=== PATIENT | male | born 1970 | race Caucasian/White ===

== ENCOUNTER → 2016-05-16 | Outpatient (CLI) | payer MEDICAID | LOC: FIMAGING 17:45 | PROVIDERS: ATTEND Radiology Diagnostic Radiology | DX: J40 Bronchitis, not specified as acute or chronic (principal) ==

== ENCOUNTER → 2016-05-16 | Outpatient (CLI) | payer MEDICAID | LOC: FIMAGING 12:54 | PROVIDERS: ATTEND Family Medicine | DX: Z13.6 Encounter for screening for cardiovascular disorders (principal); I10 Essential (primary) hypertension ==

== ENCOUNTER 2017-09-06 14:20 | Emergency (ER) | payer MEDICAID, OTHER ==
--- NOTE | 2017-09-06 14:59 | EDPHY ---
H & P Stated Complaint: L buttock wound Time Seen by Provider: 09/06/17 14:58 HPI/ROS: HPI: This is a 46-year-old male who presents with Chief Complaint: Left buttock wound Location: Left buttock Quality: Wound Duration: 4 days Signs and Symptoms: No bleeding, no radiation, no numbness, no weakness, no tingling, no incontinence, no decreased range of motion, no swelling, + pain, no fever, + redness Timing: Worsening Severity: Moderate Context: Patient reports that he sat on a piece of glass on a park bench while he was visiting with his daughter approximately 5 days ago. He was wearing pants at the time the glass poke through. He was able to pull out the glass in its entirety. Over the last 4 days he has noticed abscess on his left buttock that is gradually increasing in size and tender to touch. He denies any difficulty defecating. Denies fever, paresthesias, numbness, discharge. Takes Xarelto. Modifying Factors: None Comment: ROS: see HPI Constitutional: No fever, no chills, no weight loss Eyes: No blurred vision Respiratory: No shortness of breath, no cough Cardiovascular: No chest pain Gastrointestinal: No nausea, no vomiting no diarrhea Genitourinary: No dysuria Extremities: No myalgias Neurologic: No weakness, no numbness Skin: No rashes Hematologic: No bruising, no bleeding MEDICAL/SURGICAL/SOCIAL HISTORY: Medical/Surgical history: DVT, bilat femoral bypass, HTN, cholesterol,chronic pain, diverticulitis, colectomy 4 yrs ago Social history: Disable. CONSTITUTIONAL: Overweight middle-aged white male, awake and alert, no obvious distress HEENT: Atraumatic and normocephalic, PERRL, EOMI. Nares patent; no rhinorrhea; no nasal mucosal edema. Tympanic membranes clear. Oropharynx clear, no exudate and moist pink mucosa. Airway patent. No lymphadenopathy. No meningismus. Cardiovascular: Normal S1/S2, regular rate, regular rhythm, without murmur rub or gallop. PULMONARY/CHEST: Symmetrical and nontender. Clear to auscultation bilaterally. Good air movement. No accessory muscle usage. ABDOMEN: Soft, nondistended, nontender, no rebound, no guarding, no peritoneal signs, no masses or organomegaly. No CVAT. RECTAL: Good sphincter tone, light brown stool in vault, no external hemorrhoids , no fissures, no palpable masses EXTREMITIES: 2/2 pulses, strength 5/5, no deformities, no clubbing, no cyanosis or edema. NEUROLOGICAL: no focal neuro deficits. GCS 15. SKIN: Warm and dry, left buttock shows 2 in annular abscess located in the medial portion of the left buttock; mild surrounding erythema. no rash. Good capillary refill. Source: Patient Exam Limitations: No limitations - Personal History Current Tetanus/Diphtheria Vaccine: No Current Tetanus Diphtheria and Acellular Pertussis (TDAP): No Tetanus Vaccine Date: < 10 YRS - Medical/Surgical History Hx Asthma: No Hx Chronic Respiratory Disease: No Hx Diabetes: No Hx Cardiac Disease: Yes Hx Renal Disease: Yes Hx Cirrhosis: No Hx Alcoholism: No Hx HIV/AIDS: No Hx Splenectomy or Spleen Trauma: No Other PMH: DVT, bilat femoral bypass, HTN, cholesterol,chronic pain. diverticulitis, colectomy 4 yrs ago - Social History Smoking Status: Current some day smoker Constitutional: Initial Vital Signs Temperature (C) 36.9 C 09/06/17 14:31 Heart Rate 100 09/06/17 14:31 Respiratory Rate 16 09/06/17 14:31 Blood Pressure 179/100 H 09/06/17 14:31 O2 Sat (%) 96 09/06/17 14:31 O2 Delivery Mode Room Air Allergies/Adverse Reactions: influenza virus vaccine, specific [Influenza Virus Vacc,Specific] Allergy ( Severe, Verified 09/06/17 14:30) Other-Enter Comments [place] And Derivatives Allergy (Intermediate, Verified 09/06/17 14:30) Other-Enter Comments Home Medications: Medication Instructions Recorded Clopidogrel Bisulfate [Plavix (*)] 75 mg PO HS 10/22/14 Gabapentin [Neurontin 300 MG (*)] 300 mg PO TID PRN 10/22/14 Metoprolol Tartrate [Lopressor 100 100 mg PO BID 10/22/14 mg (*)] Rosuvastatin Calcium [Crestor 40mg 40 mg PO HS 10/22/14 (*)] Warfarin Sodium [Coumadin 5MG (*)] 5 mg PO SUMOWEFRSA@209910/22/14 Warfarin Sodium [Coumadin 5MG (*)] 7.5 mg PO TUTH@209910/22/14 Colchicine [Colchicine (RX)] 0.6 mg PO TID #5 tab 10/25/14 Pantoprazole Sodium [Protonix] 40 mg PO BID #60 tab 10/25/14 Cephalexin [Keflex (*)] 500 mg PO TID #21 cap 09/06/17 Medical Decision Making Procedures: Procedure: Abscess drainage. The patient's abscess was located on the left buttock. I obtained verbal consent from the patient to drain the abscess who was informed about the possibility of bleeding and pain. The abscess was incised with #11 scalpel and a 6 mL amount of purulent drainage was expressed. I irrigated the wound and placed some packing. The patient tolerated the procedure well. The procedure was performed by myself. ED Course/Re-evaluation: Vital signs reviewed upon arrival and stable. Fluctuance I and D. No packing placed. Given Keflex only x7 days this patient takes warfarin and concomitant interaction with Bactrim. Patient unable to perform Sitz baths as unable to sit down in a bath due to chronic health issues. Verbal and written wound care instructions provided. This patient was seen under the supervision of my secondary supervising physician. I evaluated care for this patient independently. Discussed this patient with Dr. Ocampo who did not see the patient. Differential Diagnosis: Differential diagnosis includes but is not limited to cellulitis, foreign body, abscess, MRSA infection. Departure - Departure Disposition: Home, Routine, Self-Care Clinical Impression: Left buttock abscess Condition: Good Instructions: Abscess (ED) Additional Instructions: Take Tylenol 650 mg every 4 hours and/or Ibuprofen 600 mg every 8 hours with food as needed for pain. Take Keflex 3 times daily x7 days. Referrals: PCP Not In,Dictionary [Medical Doctor] - As per Instructions Prescriptions: Cephalexin [Keflex (*)] 500 mg PO TID #21 cap
[2017-09-06 16:07] VITALS: BP 178/122
== END 2017-09-06 16:06 | disposition home or self-care (01) ==
PROC: 0H98XZZ Drainage of Buttock Skin, External Approach (ICD-10-PCS; principal; 2017-09-06)
DX: L02.31 Cutaneous abscess of buttock (principal); I10 Essential (primary) hypertension; F17.200 Nicotine dependence, unspecified, uncomplicated

== ENCOUNTER 2018-05-30 14:59 | Inpatient (IN) | payer OTHER ==
[2018-05-30] MEDS ORDERED: ACETAMINOPHEN 325 MG TAB PO ONE (17:00)
--- NOTE | 2018-05-30 17:00 | EDPHY ---
H & P Stated Complaint: r knee swelling/paiin/ fever/ hx dvt in past Time Seen by Provider: 05/30/18 16:27 HPI/ROS: CHIEF COMPLAINT: Right knee pain HISTORY OF PRESENT ILLNESS: 47-year-old male s/p bilateral fem-pop bypass on Xarelto presents with right knee pain. Onset of moderate right knee pain 2 days ago. The pain is constant and is associated with swelling. Pain increases with movement and weight-bearing. No recent injury or illness. Does not feel ill and no fever. REVIEW OF SYSTEMS: complete 10 point ROS reviewed and is negative except for the noted elements in the HPI - Personal History Current Tetanus Diphtheria and Acellular Pertussis (TDAP): Unsure Tetanus Vaccine Date: < 10 YRS - Medical/Surgical History Hx Asthma: No Hx Chronic Respiratory Disease: No Hx Diabetes: No Hx Cardiac Disease: Yes Hx Renal Disease: Yes Hx Cirrhosis: No Hx Alcoholism: No Hx HIV/AIDS: No Hx Splenectomy or Spleen Trauma: No Other PMH: DVT, bilat femoral bypass, HTN, cholesterol,chronic pain. diverticulitis, colectomy 4 yrs ago - Social History Smoking Status: Current some day smoker - Physical Exam Exam: General Appearance: Alert, pleasant Eyes: Pupils equal and round, no conjunctival pallor ENT, Mouth: Mucous membranes moist Neck: Normal inspection Respiratory: Lungs are clear to auscultation Cardiovascular: Regular rate and rhythm Gastrointestinal: Abdomen is soft and nontender Neurological: A&O, nonfocal exam Skin: Warm and dry, no rash Extremities: Right knee-joint effusion present, no overlying erythema, warmth or tenderness Psychiatric: Mood and affect normal Constitutional: Initial Vital Signs Temperature (C) 38 C 05/30/18 15:39 Heart Rate 104 H 05/30/18 15:39 Respiratory Rate 19 05/30/18 15:39 Blood Pressure 207/134 H 05/30/18 15:39 O2 Sat (%) 94 05/30/18 15:39 O2 Delivery Mode Room Air Allergies/Adverse Reactions: influenza virus vaccine, specific [Influenza Virus Vacc,Specific] Allergy ( Severe, Verified 05/30/18 20:25) Other-Enter Comments amlodipine Allergy (Intermediate, Verified 05/30/18 20:25) Other-Enter Comments [place] And Derivatives Allergy (Intermediate, Verified 05/30/18 20:25) Other-Enter Comments Home Medications: Medication Instructions Recorded Gabapentin [Neurontin 300 MG (*)] 300 mg PO HS 10/22/14 Metoprolol Tartrate [Lopressor 100 100 mg PO BID 10/22/14 mg (*)] Rosuvastatin Calcium [Crestor 40mg 40 mg PO HS 10/22/14 (*)] Clopidogrel Bisulfate [Plavix (*)] 75 mg PO HS 05/30/18 Colchicine [Colchicine (RX)] 0.6 mg PO BID PRN 05/30/18 Cyclobenzaprine [Flexeril 10 MG 10 mg PO HS 05/30/18 (*)] Ibuprofen [Motrin (*)] 200 mg PO DAILY PRN 05/30/18 Lisinopril [Zestril 40 mg (*)] 40 mg PO HS 05/30/18 Pantoprazole Sodium [Protonix] 40 mg PO HS 05/30/18 Rivaroxaban [Xarelto 10mg (*)] 20 mg PO DAILY AT 6PM 05/30/18 Spironolactone [Aldactone 25 MG 25 mg PO HS 05/30/18 (*)] Medical Decision Making - Diagnostics Imaging Results: Imaging Impressions Cyst Aspiration Ultrasound 05/31/18 14:34 Impression: Ultrasound-guided aspiration as above. Extremity Venous Study 05/30/18 16:57 Impression: 1. No deep vein thrombosis in the right lower extremity. 2. Popliteal artery aneurysm, subtotally thrombosed 2. Right Knee, 3 views including a sunrise view History: Pain Comparison: January 25, 2013 Findings: There is soft tissue swelling around the knee. There are stable vascular surgical clips in the medial/posterior knee consistent with prior femoral-popliteal bypass surgery. The knee is normally mineralized. There is stable mild degenerative narrowing of the medial joint compartment and mild widening of the lateral joint compartment consistent with arthritis and mild instability. There is a stable old healed proximal fibular fracture deformity. There is a chronic stable small exostosis projecting medially off the distal femoral shaft. The patella is intact and in stable normal alignment. Impression: [place] soft tissue swelling. No acute bone or joint abnormality identified. Results discussed with Dr. Meza at 6:05 PM. Knee X-Ray 05/30/18 16:58 Impression: 1. No deep vein thrombosis in the right lower extremity. 2. Popliteal artery aneurysm, subtotally thrombosed 2. Right Knee, 3 views including a sunrise view History: Pain Comparison: January 25, 2013 Findings: There is soft tissue swelling around the knee. There are stable vascular surgical clips in the medial/posterior knee consistent with prior femoral-popliteal bypass surgery. The knee is normally mineralized. There is stable mild degenerative narrowing of the medial joint compartment and mild widening of the lateral joint compartment consistent with arthritis and mild instability. There is a stable old healed proximal fibular fracture deformity. There is a chronic stable small exostosis projecting medially off the distal femoral shaft. The patella is intact and in stable normal alignment. Impression: [place] soft tissue swelling. No acute bone or joint abnormality identified. Results discussed with Dr. Meza at 6:05 PM. Imaging: Discussed imaging studies w/ outbound call center representative Radiologist, I viewed and interpreted images myself ED Course/Re-evaluation: This patient presents with right knee pain and a knee effusion on exam. d/w pt , no aspiration in ED, given pt on Xarelto. Ultrasound reveals a popliteal artery aneurysm. I consulted Dr. Anisa Fierro, who suggests admission. Continue Xarelto for now. Plan for Dr. Gonzalez to assess the pt in the am. The hospitalist service was consulted for admission. Patient's blood pressure is quite elevated. He has not taken his usual dose of metoprolol this evening. Metoprolol 100 mg orally given. Differential Diagnosis: Differential diagnosis includes though it is not limited to compartment syndrome , septic arthritis, fracture, tendon disruption, neurovascular compromise. - Data Points Laboratory Results: Laboratory Results 05/31/18 04:38 05/31/18 04:35 05/31/18 05/31/18 05/31/18 15:30 15:30 04:38 Hct 47.3 % % (40.0-51.0) ESR 12 MM/HR MM/HR (0-15) Uric Acid C-Reactive Protein Synovial Crystals Pending Cytology Pending 05/31/18 05/31/18 04:35 04:35 Hct ESR Uric Acid 6.7 mg/dL mg/dL (3.5-8.5) C-Reactive Protein 67.7 mg/L H mg/L (<10.0) Synovial Crystals Cytology Medications Given: Cyclobenzaprine HCl (Flexeril) 10 mg PO HS PRN PRN Reason: Spasms Stop: 11/27/18 01:26 Last Admin: 05/31/18 01:38 Dose: 10 mg Gabapentin (Neurontin) 300 mg PO HS PRN PRN Reason: Pain Stop: 11/27/18 01:26 Last Admin: 05/31/18 01:38 Dose: 300 mg Hydralazine HCl (Apresoline) 10 mg IVP Q6HRS PRN PRN Reason: sbp >160 Stop: 11/27/18 07:01 Last Admin: 05/31/18 08:27 Dose: 10 mg Hydralazine HCl (Apresoline) 25 mg PO TID [facility] Stop: 11/27/18 11:59 Last Admin: 05/31/18 15:43 Dose: 25 mg Metoprolol Tartrate (Lopressor) 100 mg PO BID [facility] Stop: 11/27/18 08:59 Last Admin: 05/31/18 07:45 Dose: 100 mg Rivaroxaban (Xarelto) 20 mg PO DAILY AT 6PM [facility] Stop: 11/27/18 17:59 Last Admin: 05/31/18 17:13 Dose: 20 mg Tramadol HCl (Ultram) 50 - 100 mg PO Q6HRS PRN PRN Reason: Pain, Moderate Able to Take PO Stop: 11/27/18 01:26 Last Admin: 05/31/18 07:31 Dose: 50 mg Discontinued Medications Acetaminophen (Tylenol) 650 mg PO EDNOW ONE Stop: 05/30/18 17:01 Last Admin: 05/30/18 17:08 Dose: 650 mg Ketorolac Tromethamine (Toradol) 15 mg IVP ONCE ONE Stop: 05/31/18 09:52 Last Admin: 05/31/18 10:00 Dose: 15 mg Ketorolac Tromethamine (Toradol) 15 mg IVP ONCE ONE Stop: 05/31/18 14:49 Last Admin: 05/31/18 15:43 Dose: 15 mg Lisinopril (Zestril) 40 mg PO ONCE ONE Stop: 05/31/18 01:14 Last Admin: 05/31/18 01:26 Dose: 40 mg Metoprolol Tartrate (Lopressor) 100 mg PO EDNOW ONE Stop: 05/30/18 19:35 Last Admin: 05/30/18 19:42 Dose: 100 mg Nicotine (Nicoderm Cq) 21 mg TD ONCE ONE Stop: 05/31/18 01:14 Last Admin: 05/31/18 01:26 Dose: 21 mg Oxycodone HCl (Oxycodone Ir) 5 - 10 mg PO Q3HRS PRN PRN Reason: Pain, Severe Able to Take PO Stop: 06/09/18 22:44 Last Admin: 05/31/18 01:12 Dose: 10 mg Departure - Departure Disposition: [facility] Clinical Impression: Aneurysm of right popliteal artery, Knee effusion, right Condition: Fair
[2018-05-30 17:07] LABS: PLATELET COUNT 100 10^3/uL (150-400)
[2018-05-30] MEDS ORDERED: METOPROLOL TARTRATE 100 MG TAB PO ONE (19:34)
[2018-05-30] MEDS ORDERED: METOPROLOL TARTRATE 50 MG TAB ONE (19:40)
[2018-05-30] MEDS ORDERED: ONDANSETRON DISINTEGRATING 4 MG TAB PO PRN (22:45)
[2018-05-30] MEDS ORDERED: ONDANSETRON 4 MG/2 ML VIAL IVP PRN (22:45)
[2018-05-30] MEDS ORDERED: ACETAMINOPHEN 325 MG TAB PO PRN (22:45)
[2018-05-30] MEDS ORDERED: oxyCODONE IR 5 MG TAB PO PRN (22:45)
[2018-05-31] MEDS ORDERED: NICOTINE 21 MG/24 HR PATCH TD ONE (01:13)
[2018-05-31] MEDS ORDERED: LISINOPRIL 20 MG TAB PO ONE (01:13)
--- NOTE | 2018-05-31 01:36 | PDGENHP ---
History and Physical - Chief Complaint Leg pain - History of Present Illness 47 yo M w/ hx of b/l popliteal aneurysms s/p b/l fem-pop bypass presents with R knee pain. The patient first noticed swelling of his R knee 2 days ago. Over the last 2 days the patient developed warmth, redness, and swelling of the area. Range of motion to the joint is uncomfortable but not severely painful. He had a fever here in the ER but he was not symptomatic. In the ED an ultrasound revealed a clot in known aneurysm. He denies other symptoms. He is being admitted for management of this. He is on Xarelto for history of prior clot to the L side. Case discussed with Dr. Guardado; records reviewed and summarized above. History Information - Allergies/Home Medication List Allergies/Adverse Reactions: influenza virus vaccine, specific [Influenza Virus Vacc,Specific] Allergy ( Severe, Verified 05/30/18 20:25) Other-Enter Comments amlodipine Allergy (Intermediate, Verified 05/30/18 20:25) Other-Enter Comments [place] And Derivatives Allergy (Intermediate, Verified 05/30/18 20:25) Other-Enter Comments Home Medications: Gabapentin [Neurontin 300 MG (*)] 300 mg PO HS 10/22/14 [Last Taken 05/29/18 21: 00] Metoprolol Tartrate [Lopressor 100 mg (*)] 100 mg PO BID 10/22/14 [Last Taken 21:00] Rosuvastatin Calcium [Crestor 40mg (*)] 40 mg PO HS 10/22/14 [Last Taken 21:00] Clopidogrel Bisulfate [Plavix (*)] 75 mg PO HS 05/30/18 [Last Taken 05/29/18 21: 00] Colchicine [Colchicine (RX)] 0.6 mg PO BID PRN 05/30/18 [Last Taken Unknown] Cyclobenzaprine [Flexeril 10 MG (*)] 10 mg PO HS 05/30/18 [Last Taken 05/29/18 21:00] Ibuprofen [Motrin (*)] 200 mg PO DAILY PRN 05/30/18 [Last Taken 05/29/18] Lisinopril [Zestril 40 mg (*)] 40 mg PO HS 05/30/18 [Last Taken 05/29/18 21:00] Pantoprazole Sodium [Protonix] 40 mg PO HS 05/30/18 [Last Taken 05/29/18 21:00] Rivaroxaban [Xarelto 10mg (*)] 20 mg PO DAILY AT 6PM 05/30/18 [Last Taken ] Spironolactone [Aldactone 25 MG (*)] 25 mg PO HS 05/30/18 [Last Taken 05/29/18 21:00] I have personally reviewed and updated: family history, medical history - Past Medical History hypertension - Surgical History Additional surgical history: Bilateral fem-pop bypass 2012 - Family History Positive for: cancer, hypertension - Social History Smoking Status: Current some day smoker Review of Systems Review of Systems: ROS: 10pt was reviewed & negative except for what was stated in HPI & below Physical Exam Physical Exam: Temp Pulse Resp BP Pulse Ox 37.2 C 75 16 200/128 H 94 05/30/18 23:49 05/30/18 23:49 05/30/18 23:49 05/30/18 23:49 05/30/18 23:49 Constitutional: obese, uncomfortable Eyes: PERRL, EOMI Ears, Nose, Mouth, Throat: moist mucous membranes, no oral mucosal ulcers Cardiovascular: regular rate and rhythym, systolic murmur Respiratory: no respiratory distress, clear to auscultation Skin: warm, other (Warmth, swelling r knee) Musculoskeletal: full muscle strength, joint effusion (R knee) Neurologic: AAOx3, CN II-XII Intact Psychiatric: interacting appropriately, not anxious Lab Data & Imaging Review 05/30/18 16:50 05/30/18 16:50 WBC 7.76 10^3/uL (3.80-9.50) 05/30/18 16:50 RBC 4.88 10^6/uL (4.40-6.38) 05/30/18 16:50 Hgb 17.1 g/dL (13.7-17.5) 05/30/18 16:50 Hct 48.9 % (40.0-51.0) 05/30/18 16:50 MCV 100.2 fL (81.5-99.8) H 05/30/18 16:50 MCH 35.0 pg (27.9-34.1) H 05/30/18 16:50 MCHC 35.0 g/dL (32.4-36.7) 05/30/18 16:50 RDW 11.9 % (11.5-15.2) 05/30/18 16:50 Plt Count 100 10^3/uL (150-400) L 05/30/18 16:50 MPV 9.9 fL (8.7-11.7) 05/30/18 16:50 Neut % (Auto) 60.2 % (39.3-74.2) 05/30/18 16:50 Lymph % (Auto) 24.1 % (15.0-45.0) 05/30/18 16:50 [place] % (Auto) 10.4 % (4.5-13.0) 05/30/18 16:50 Eos % (Auto) 4.1 % (0.6-7.6) 05/30/18 16:50 Baso % (Auto) 0.9 % (0.3-1.7) 05/30/18 16:50 Nucleat RBC Rel Count 0.0 % (0.0-0.2) 05/30/18 16:50 Absolute Neuts (auto) 4.67 10^3/uL (1.70-6.50) 05/30/18 16:50 Absolute Lymphs (auto) 1.87 10^3/uL (1.00-3.00) 05/30/18 16:50 Absolute Monos (auto) 0.81 10^3/uL (0.30-0.80) H 05/30/18 16:50 Absolute Eos (auto) 0.32 10^3/uL (0.03-0.40) 05/30/18 16:50 Absolute Basos (auto) 0.07 10^3/uL (0.02-0.10) 05/30/18 16:50 Absolute Nucleated RBC 0.00 10^3/uL (0-0.01) 05/30/18 16:50 Immature Gran % 0.3 % (0.0-1.1) 05/30/18 16:50 Immature Gran # 0.02 10^3/uL (0.00-0.10) 05/30/18 16:50 VBG Lactic Acid 1.4 mmol/L (0.7-2.1) 05/30/18 16:50 Sodium 137 mEq/L (135-145) 05/30/18 16:50 Potassium 3.9 mEq/L (3.5-5.2) 05/30/18 16:50 Chloride 105 mEq/L (97-110) 05/30/18 16:50 Carbon Dioxide 24 mEq/l (22-31) 05/30/18 16:50 Anion Gap 8 mEq/L (6-14) 05/30/18 16:50 BUN 7 mg/dL (7-23) 05/30/18 16:50 Creatinine 0.7 mg/dL (0.7-1.3) 05/30/18 16:50 Estimated GFR > 60 05/30/18 16:50 Glucose 110 mg/dL (70-100) H 05/30/18 16:50 Calcium 8.9 mg/dL (8.5-10.4) 05/30/18 16:50 Imaging Review: Imaging Impressions Extremity Venous Study 05/30/18 16:57 Impression: 1. No deep vein thrombosis in the right lower extremity. 2. Popliteal artery aneurysm, subtotally thrombosed 2. Right Knee, 3 views including a sunrise view History: Pain Comparison: January 25, 2013 Findings: There is soft tissue swelling around the knee. There are stable vascular surgical clips in the medial/posterior knee consistent with prior femoral-popliteal bypass surgery. The knee is normally mineralized. There is stable mild degenerative narrowing of the medial joint compartment and mild widening of the lateral joint compartment consistent with arthritis and mild instability. There is a stable old healed proximal fibular fracture deformity. There is a chronic stable small exostosis projecting medially off the distal femoral shaft. The patella is intact and in stable normal alignment. Impression: [place] soft tissue swelling. No acute bone or joint abnormality identified. Results discussed with Dr. Meza at 6:05 PM. Knee X-Ray 05/30/18 16:58 Impression: 1. No deep vein thrombosis in the right lower extremity. 2. Popliteal artery aneurysm, subtotally thrombosed 2. Right Knee, 3 views including a sunrise view History: Pain Comparison: January 25, 2013 Findings: There is soft tissue swelling around the knee. There are stable vascular surgical clips in the medial/posterior knee consistent with prior femoral-popliteal bypass surgery. The knee is normally mineralized. There is stable mild degenerative narrowing of the medial joint compartment and mild widening of the lateral joint compartment consistent with arthritis and mild instability. There is a stable old healed proximal fibular fracture deformity. There is a chronic stable small exostosis projecting medially off the distal femoral shaft. The patella is intact and in stable normal alignment. Impression: [place] soft tissue swelling. No acute bone or joint abnormality identified. Results discussed with Dr. Meza at 6:05 PM. Assessment & Plan Assessment: 47 yo M w/ hx of b/l popliteal aneurysms s/p fem-pop bypass presents with R knee swelling and found to have subtotal thrombosis. Plan: 1. R Popliteal artery aneurysm, subtotally thrombosed - This developed despite Xarelto therapy, which was started due to similar thrombosis of L sided aneurysm. He is s/p b/l fem-pop bypass by Dr. Gonzalez. - Continue Xarelto, Plavix - Surgery consulted (Dr. Gonzalez), appreciate assistance 2. R knee swelling - At least partially due to above, but difficult to rule out infection. He did have a fever upon arrival to the ED, but this could also be caused by thrombosis. - Observe for additional signs of infection - Will observe off of antibiotics for now, may benefit from arthrocentesis for definitive diagnosis 3. Hypertension - Elevated while here but in the setting of acute pain and missing home meds. - Restart home medications. Diet - NPO @ [place] pending surgical evaluation Code - Full Ppx - Xarelto Dispo - Admit under observation status
[2018-05-31] MEDS: GABAPENTIN 300 MG CAP PO PRN (01:38)
[2018-05-31] MEDS: CYCLOBENZAPRINE 10 MG TAB PO PRN (01:38)
[2018-05-31] MEDS ORDERED: COLCHICINE 0.6 MG CAP/TAB PO PRN (01:41)
[2018-05-31 05:21] LABS: PLATELET COUNT 110 10^3/uL (150-400)
[2018-05-31] MEDS: traMADol 50 MG TAB PO PRN (07:31)
[2018-05-31] MEDS: METOPROLOL TARTRATE 100 MG TAB PO SCH ×2 (07:45→20:14)
[2018-05-31] MEDS: hydrALAZINE 20 MG/ML VIAL IVP PRN ×2 (08:27→21:30)
--- NOTE | 2018-05-31 09:43 | SOAPPROG ---
[facility] Progress Note Assessment/Plan: Assessment/Plan: 47 Y M admitted with R knee pain and swelling. Hx of urgent L fem tib bypass for thrombosed NEYDA and elective R fem pop bypass for NEYDA in 2013. US shows thrombosed R NEYDA, but this is ligated and bypassed, so shouldn't be an issue--probably a chronic finding. Pedal pulses were great on bedside doppler examination. Will get a CTA to evaluate arterial bypass patency, but doubt the swelling is related to his vascular surgeries. Has been on xarelto. Possible gout/pseudogout? Defer to medicine and possibly orthopedics. Seen with Dr. Gonzalez. S: +R knee pain and swelling. O: alert, nad no wob rrr abd soft well healed leg scars +R knee swelling foot warm, good doppler pedal pulses. 05/31/18 09:38 Objective: Vital Signs Temp Pulse Resp BP Pulse Ox 36.9 C 89 16 199/129 H 94 05/31/18 07:21 05/31/18 07:21 05/31/18 07:21 05/31/18 08:24 05/31/18 07:21 Laboratory Results 05/31/18 04:35 05/31/18 04:35 ICD10 Worksheet Patient Problems: Problems Problem Status Onset Aneurysm of right popliteal artery Acute Renal failure Acute
[2018-05-31] MEDS ORDERED: KETOROLAC 15 MG/1 ML SDV IVP ONE ×2 (09:51→14:48)
[2018-05-31] MEDS ORDERED: IOPAMIDOL (ISOVUE-370) 150 ML BTL IV ONE (10:07)
--- NOTE | 2018-05-31 11:08 | HOSPPROG ---
Hospitalist Progress Note Assessment/Plan: 47 yo M w/ hx of b/l popliteal aneurysms s/p fem-pop bypass presents with R knee swelling and found to have subtotal thrombosis. R Popliteal artery aneurysm, subtotally thrombosed - This has been bypassed and finding is likely chronic per surg. - CTA to eval graft patency - Continue Xarelto, Plavix R knee swelling - Above issue seems less likely to be etiology, especially if graft is patent. Fever noted on arrival. WBC 7-->10K. However, joint is not red or hot. Doesn't seem c/w infectious etiology. Query gout or pseudogout vs edema from arthritis. Serum uric acid 6.7. No risk factors in sexual hx for GC /chlam. - will request ortho consult for possible aspiration of joint - elevated leg, pain control - CTA as above Hypertension - Resume home lisinopril, metoprolol, spironolactone - add hydralazine H/O gout - on colchicine Diet - Na restricted diet Code - Full Ppx - Xarelto Dispo - Change to inpt for further evaluation of knee pain and swelling. Subjective: PT c/o right knee pain and swelling, causing difficulty ambulating. No fevers overnight. Had low grade fever on arrival. No N/V. No CP or SOB. No devine. Objective: Vital Signs Temp Pulse Resp BP Pulse Ox 36.9 C 89 16 188/127 H 94 05/31/18 07:21 05/31/18 07:21 05/31/18 07:21 05/31/18 09:49 05/31/18 07:21 Laboratory Results 05/31/18 04:35 05/31/18 04:35 - Physical Exam Constitutional: no apparent distress Eyes: PERRL Ears, Nose, Mouth, Throat: moist mucous membranes Cardiovascular: regular rate and rhythym Respiratory: no respiratory distress, clear to auscultation Gastrointestinal: normoactive bowel sounds, soft, non-tender abdomen Skin: warm Musculoskeletal: full muscle strength, other (Right knee joint with swelling, no erythema, not hot to touch, posterior swelling noted) Neurologic: AAOx3 Psychiatric: interacting appropriately ICD10 Worksheet Patient Problems: Problems Problem Status Onset Aneurysm of right popliteal artery Acute Renal failure Acute
[2018-05-31] MEDS: hydrALAZINE 25 MG TAB PO SCH ×3 (11:29→20:13)
[2018-05-31] MEDS ORDERED: LIDOCAINE 1% 300 MG/30 ML SDV ONE (14:40)
--- NOTE | 2018-05-31 14:59 | GCON ---
[f rep st] CONSULTATION ORTHOPEDIC ER CONSULT CHIEF COMPLAINT: Right knee pain and swelling. DIAGNOSES: 1. Right knee pain and swelling. 2. History of gout that usually occurs in the right great toe. 3. History of bilateral femoral-popliteal bypass. 4. History of multiple surgeries for removal of bone spurs and osteochondromas of the distal femur a nd tibia performed by Dr. Charles grubbs at [facility]. HISTORY OF PRESENT ILLNESS: A 47-year-old male with history of bilateral popliteal aneurysms status post bilateral fem-pop bypasses. States that both knees were doing well up until last weekend, where he first noticed swelling in the right knee. He does have a history of gout that usually occurs in the right great toe and typically can be red and swollen. Denies any trauma or recent injury. Descr ibes fever this past weekend. His range of motion is uncomfortable and is stiff. He is on Xarelto. Please see details of ER H and P and admitting H and P. PERTINENT ORTHOPEDIC EXAMINATION: Reveals a well-appearing gentleman. Abdomen is soft. He has a di stal lateral thigh scar and a medial tibial scar that are well-healed. Evidence of medial scarring b ilaterally from presumably the bypass graft. His left knee is 5 degrees of valgus with full extensio n and 150 to flexion. The right knee has some moderate to severe swelling. No increased tenderness or warmth. He had 10 degrees extension to about 45 degrees flexion with some discomfort. He has mid -range flexion of about 20 degrees without any significant pain. X-rays reveal multiple clips indicating prior vascular surgery. Minimal arthritis. Evidence of oste ochondromas. IMPRESSION/RECOMMENDATIONS: Right knee pain and swelling. I think it is important to determine if this is an infectious or noninfectious cause. I have added E SR and CRP labs. He did have a normal white count upon admission, although slightly elevated today. I have also asked for ultrasound-guided knee aspiration for Gram stain, culture, and crystals since he has a history of gout. For now, elevate, free range of motion as tolerated, and await treatment p lans pending results of labs and aspiration. /[id number]/MODL
--- NOTE | 2018-05-31 15:51 | ASMTCMCOM ---
CM Note CM Note Notes: Spoke with pt in the room and with pt's RN. Pt lives with dtr and parents and was admitted for popliteal artery aneurysm with thrombosis. PT is ordered. Pt likely to discharge independently when stable. CM to follow. D/C Plan: Independent Date Signed: 05/31/2018 03:50 PM Electronically Signed By:Sherry Camilo
[2018-05-31] MEDS: RIVAROXABAN 20 MG TAB PO SCH (17:13)
--- NOTE | 2018-05-31 17:13 | PDMN ---
Medical Necessity Medical necessity: [facility] Musculoskeletal Disease: 47 yo presents w/ R knee pain and swelling. Eval reveals R popliteal artery aneurysm, subtotally thrombosed despite xarelto tx and potential infection of R knee. Initially OBS for workup/tx but pt requires additional MN to further eval knee. WBC elevated overnight. Surgical and ortho consults. U/S guided aspiration completed, results pending. Difficulty ambulating due to knee. PT consult. Pt having issues with HTN, SBP 160s-200s w/ DBP 90s-130. Hx HTN, B/L fem/pop bypass 2012. Change to IP status 05/31/18@1602 per order.
[2018-05-31] MEDS: KETOROLAC 30 MG/1 ML SDV IVP SCH (20:12)
[2018-05-31] MEDS: SPIRONOLACTONE 25 MG TAB PO SCH (20:12)
[2018-05-31] MEDS: ROSUVASTATIN CALCIUM 40 MG TAB PO SCH (20:13)
[2018-05-31] MEDS: CLOPIDOGREL BISULFATE 75 MG TAB PO SCH (20:13)
[2018-05-31] MEDS: LISINOPRIL 40 MG TAB PO SCH (20:14)
[2018-05-31] MEDS: PANTOPRAZOLE SODIUM 40 MG TAB PO SCH (20:14)
[2018-05-31] MEDS: NICOTINE 21 MG/24 HR PATCH TD SCH (21:17)
[2018-06-01] MEDS: GABAPENTIN 300 MG CAP PO PRN ×2 (02:07→22:41)
[2018-06-01] MEDS: CYCLOBENZAPRINE 10 MG TAB PO PRN ×2 (02:07→22:41)
[2018-06-01] MEDS: KETOROLAC 30 MG/1 ML SDV IVP SCH ×2 (02:07→08:16)
[2018-06-01 06:55] LABS: PLATELET COUNT 109 10^3/uL (150-400)
[2018-06-01] MEDS: hydrALAZINE 25 MG TAB PO SCH ×3 (08:52→22:01)
[2018-06-01] MEDS: METOPROLOL TARTRATE 100 MG TAB PO SCH ×2 (08:52→22:38)
[2018-06-01] MEDS: hydrALAZINE 20 MG/ML VIAL IVP PRN (10:01)
--- NOTE | 2018-06-01 11:00 | SOAPPROG ---
SOAP Progress Note Assessment/Plan: 47 yo male, right knee pain/swelling/effusion since 05/30/18, s/p right knee aspiration 05/31/18, probable gout, unlikely infectious or dvt in nature, improving overall w/o current issues or complaints -cont med management per primary team -labs: final read of gout, cell count pending, 24 hour preliminary culture demonstrates no growth -dr. santiago recommends medical management of gout at this time, no surgical intervention at this time -colchicine -0.6mg 1 tab po q12h x3 days -RLE: wbat, rom as tolerated by pain -pt/ot -f/u with orthopedics 10-14 days after discharge from hospital for recheck if needed or sooner with issues/concerns Subjective: jude is a pleasant 47 yo male, reports no major issues over night, pain has improved since the aspiration yesterday and reports better range of motion, not full, but substantially improved flexion, denies numbness/tingling, denies cp/ sob, denies chills/fevers, denies n/v/d/c, voiding freely but endorses one time "redish urine" this AM, never has had this before, moving bowels w/o issues Objective: RLE: no erythema/ecchymosis, mild edema throughout knee, symmetric extension w/ intact NON-painful straight leg raise, flexino 0-100 w/ pain/tightness at end range, no laxity/pain w/ varus/valgus stress, full ankle/digital rom, grossly nvid, brisk cap refill, pt/d=p2+ Vital Signs Temp Pulse Resp BP Pulse Ox 36.7 C 73 18 164/112 H 97 06/01/18 08:00 06/01/18 08:00 06/01/18 08:00 06/01/18 10:01 06/01/18 08:00 Laboratory Results 06/01/18 06:26 - Pending Discharge Pending Discharge Within 48 Hours: Yes Pending Discharge Date: 06/03/18 Pending Discharge Time: 11:00 ICD10 Worksheet Patient Problems: Problems Problem Status Onset Aneurysm of right popliteal artery Acute Knee effusion, right Acute Renal failure Acute
[2018-06-01] MEDS: traMADol 50 MG TAB PO PRN ×2 (16:52→23:52)
[2018-06-01] MEDS: RIVAROXABAN 20 MG TAB PO SCH (17:04)
--- NOTE | 2018-06-01 17:15 | HOSPPROG ---
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 - CTA to eval graft patency - Continue Xarelto, Plavix Hypertension - cont home lisinopril, metoprolol, spironolactone - add hydralazine Diet - Na restricted diet Code - Full Ppx - Xarelto Dispo - Cont inpt, PT/OT, home when able to safely ambulate, hopefully tomorrow Subjective: Continues to have right knee pain and swelling. No fevers. He had trouble ambulating with PT on the stairs, felt his knee "pop" and couldn't walk back to his room. Objective: Vital Signs Temp Pulse Resp BP Pulse Ox 37.1 C 71 18 156/102 H 94 06/01/18 16:00 06/01/18 16:00 06/01/18 16:00 06/01/18 16:00 06/01/18 16:00 Laboratory Results 06/01/18 06:26 - Physical Exam Constitutional: no apparent distress Eyes: PERRL Ears, Nose, Mouth, Throat: moist mucous membranes Cardiovascular: regular rate and rhythym Respiratory: no respiratory distress Gastrointestinal: normoactive bowel sounds, soft, non-tender abdomen Skin: warm Musculoskeletal: full muscle strength, other (Right knee with edema, no erythema or warmth) Neurologic: AAOx3 Psychiatric: interacting appropriately ICD10 Worksheet Patient Problems: Problems Problem Status Onset Aneurysm of right popliteal artery Acute Knee effusion, right Acute Renal failure Acute
[2018-06-01] MEDS ORDERED: KETOROLAC 15 MG/1 ML SDV IVP PRN (17:19)
[2018-06-01] MEDS: ROSUVASTATIN CALCIUM 40 MG TAB PO SCH (22:00)
[2018-06-01] MEDS: LISINOPRIL 40 MG TAB PO SCH (22:00)
[2018-06-01] MEDS: CLOPIDOGREL BISULFATE 75 MG TAB PO SCH (22:00)
[2018-06-01] MEDS: PANTOPRAZOLE SODIUM 40 MG TAB PO SCH (22:01)
[2018-06-01] MEDS: NICOTINE 21 MG/24 HR PATCH TD SCH (22:01)
[2018-06-01] MEDS: COLCHICINE 0.6 MG CAP/TAB PO SCH (22:02)
[2018-06-01] MEDS: SPIRONOLACTONE 25 MG TAB PO SCH (22:02)
[2018-06-02] MEDS: traMADol 50 MG TAB PO PRN ×2 (05:49→22:39)
[2018-06-02] MEDS: hydrALAZINE 20 MG/ML VIAL IVP PRN ×2 (07:30→18:15)
[2018-06-02] MEDS: METOPROLOL TARTRATE 100 MG TAB PO SCH ×2 (09:13→20:43)
[2018-06-02] MEDS: COLCHICINE 0.6 MG CAP/TAB PO SCH ×2 (09:14→20:44)
[2018-06-02] MEDS: hydrALAZINE 25 MG TAB PO SCH ×3 (09:14→20:46)
[2018-06-02] MEDS: predniSONE 20 MG TAB PO SCH (16:20)
[2018-06-02] MEDS: RIVAROXABAN 20 MG TAB PO SCH (19:30)
[2018-06-02] MEDS: PANTOPRAZOLE SODIUM 40 MG TAB PO SCH (20:43)
[2018-06-02] MEDS: NICOTINE 21 MG/24 HR PATCH TD SCH (20:43)
[2018-06-02] MEDS: CLOPIDOGREL BISULFATE 75 MG TAB PO SCH (20:43)
[2018-06-02] MEDS: LISINOPRIL 40 MG TAB PO SCH (20:43)
[2018-06-02] MEDS: SPIRONOLACTONE 25 MG TAB PO SCH (20:44)
[2018-06-02] MEDS: ROSUVASTATIN CALCIUM 40 MG TAB PO SCH (20:44)
--- NOTE | 2018-06-02 21:46 | HOSPPROG ---
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 - CTA to eval graft patency - Continue Xarelto, Plavix -appreciate general surgery assistance Hypertension -home meds + prns Diet - Na restricted diet, changed to con carb 2200 Kcal Code - Full Ppx - Xarelto Dispo - likely > 48 hours as uable to ambulate safely and may need surgery, PT/ OT, home when able to safely ambulate Subjective: In a lot of pain with ambulating. No n/v/d/SOB/CP. Says BP 'always high. Objective: Vital Signs Temp Pulse Resp BP Pulse Ox 98.6 F 79 20 175/110 H 93 06/02/18 20:30 06/02/18 20:30 06/02/18 20:30 06/02/18 20:30 06/02/18 20:30 Laboratory Results 06/01/18 06:26 06/01/18 06/02/18 06/03/18 11:59 11:59 11:59 Intake Total 1050 Balance 1050 - Time Spent With Patient Time Spent with Patient: greater than 25 minutes Time Spent with Patient: Greater than 25 minutes spent on this patients care, greater than 50% of time spent counseling, educating, and coordinating care regarding the above mentioned plan. - Physical Exam Constitutional: no apparent distress, obese Eyes: anicteric sclera Ears, Nose, Mouth, Throat: moist mucous membranes, hearing normal Cardiovascular: regular rate and rhythym, no murmur, rub, or gallop Respiratory: no respiratory distress, no rales or rhonchi, clear to auscultation Gastrointestinal: normoactive bowel sounds, soft, non-tender abdomen, No guarding, No rebound, No distension Skin: warm Psychiatric: interacting appropriately, not anxious, not encephalopathic ICD10 Worksheet Patient Problems: Problems Problem Status Onset Aneurysm of right popliteal artery Acute Knee effusion, right Acute Renal failure Acute
[2018-06-02] MEDS: GABAPENTIN 300 MG CAP PO PRN (22:39)
[2018-06-02] MEDS: CYCLOBENZAPRINE 10 MG TAB PO PRN (22:39)
[2018-06-03] MEDS: NICOTINE 21 MG/24 HR PATCH TD SCH ×2 (07:34→21:58)
[2018-06-03] MEDS: METOPROLOL TARTRATE 100 MG TAB PO SCH ×2 (09:38→21:22)
[2018-06-03] MEDS: COLCHICINE 0.6 MG CAP/TAB PO SCH ×2 (09:38→21:19)
[2018-06-03] MEDS: predniSONE 20 MG TAB PO SCH (09:38)
[2018-06-03] MEDS: hydrALAZINE 25 MG TAB PO SCH ×2 (09:38→15:36)
--- NOTE | 2018-06-03 17:18 | ASMTCMCOM ---
CM Note CM Note Notes: Reviewed chart, pt with popiteal clots and gout. Walking better today, PT cleared pt for home. Will dc to parents house when medically stable CM available for any changes. DC Plan: Independent Date Signed: 06/03/2018 05:18 PM Electronically Signed By:Joyce Lyn RN
[2018-06-03] MEDS: RIVAROXABAN 20 MG TAB PO SCH (18:46)
--- NOTE | 2018-06-03 20:41 | HOSPPROG ---
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 - CTA to eval graft patency - Continue Xarelto, Plavix - discussed care plan with Dr Gonzalez, vascular study pending Hypertension -home meds + prns PCP- [facility] Diet - con carb 2200 Kcal Code - Full DVT prophy- Xarelto Dispo - likely > 24 hours as unable to ambulate safely and may need surgery, PT/ OT, home when able to safely ambulate Subjective: Says pain improved with prednisone, has ambulated a bit more. Denies CP/SOB/N/V/D/ABDALLA. Awaiting arterial study for surgery to decide re if needs vascular procedure. Objective: Vital Signs Temp Pulse Resp BP Pulse Ox 98.4 F 83 18 106/105 H 94 06/03/18 19:30 06/03/18 19:30 06/03/18 19:30 06/03/18 19:30 06/03/18 19:30 Laboratory Results 06/01/18 06:26 06/03/18 05:10 06/02/18 06/03/18 06/04/18 11:59 11:59 11:59 Intake Total 1050 300 Balance 1050 300 - Time Spent With Patient Time Spent with Patient: greater than 25 minutes Time Spent with Patient: Greater than 25 minutes spent on this patients care, greater than 50% of time spent counseling, educating, and coordinating care regarding the above mentioned plan. - Physical Exam Constitutional: no apparent distress, obese Eyes: anicteric sclera Ears, Nose, Mouth, Throat: moist mucous membranes, hearing normal Cardiovascular: regular rate and rhythym, no murmur, rub, or gallop Respiratory: no respiratory distress, no rales or rhonchi, clear to auscultation Gastrointestinal: normoactive bowel sounds, soft, non-tender abdomen, No guarding, No rebound, No distension Skin: warm Psychiatric: interacting appropriately, not anxious, not encephalopathic ICD10 Worksheet Patient Problems: Problems Problem Status Onset Aneurysm of right popliteal artery Acute Knee effusion, right Acute Renal failure Acute
[2018-06-03] MEDS: CLOPIDOGREL BISULFATE 75 MG TAB PO SCH (21:20)
[2018-06-03] MEDS: ROSUVASTATIN CALCIUM 40 MG TAB PO SCH (21:20)
[2018-06-03] MEDS: PANTOPRAZOLE SODIUM 40 MG TAB PO SCH (21:20)
[2018-06-03] MEDS: LISINOPRIL 40 MG TAB PO SCH (21:20)
[2018-06-03] MEDS: SPIRONOLACTONE 25 MG TAB PO SCH (21:20)
[2018-06-03] MEDS: GABAPENTIN 300 MG CAP PO PRN (23:25)
[2018-06-03] MEDS: traMADol 50 MG TAB PO PRN (23:25)
[2018-06-03] MEDS: CYCLOBENZAPRINE 10 MG TAB PO PRN (23:25)
[2018-06-04] MEDS: predniSONE 20 MG TAB PO SCH (07:27)
[2018-06-04] MEDS: METOPROLOL TARTRATE 100 MG TAB PO SCH (07:28)
[2018-06-04] MEDS: COLCHICINE 0.6 MG CAP/TAB PO SCH (07:29)
--- NOTE | 2018-06-04 13:43 | HOSPPROG ---
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 - Xarelto, Plavix -discussed care plan with Dr Gonzalez/Mara Ken, vascular study pending -consider discharge after study and FU as outpt if surgery needed Hypertension- very labile -home meds + prns -doubled hydralazine -consider sleep eval if not done prev as o/p hyperglycemia -on steroids -HBA1C pending for completeness PCP- [facility] Huang Diet - con carb 2200 Kcal Code - Full DVT prophy- Xarelto Dispo - likely > 24 hours as unable to ambulate safely and may need surgery, PT/ OT, home when able to safely ambulate Subjective: Says pain better, ambulating OK. No n/v/d/cp. Says no prev DX/eval for TAMERA (asked bc of labile BP). Says no prev dx DM (asked bc of elev with prednisone). Objective: Vital Signs Temp Pulse Resp BP Pulse Ox 98.5 F 64 16 158/114 H 93 06/04/18 12:00 06/04/18 12:00 06/04/18 12:00 06/04/18 12:00 06/04/18 12:00 Laboratory Results 06/01/18 06:26 06/04/18 05:48 06/03/18 06/04/18 06/05/18 11:59 11:59 11:59 Intake Total 300 Balance 300 - Physical Exam Constitutional: no apparent distress, obese Eyes: anicteric sclera Ears, Nose, Mouth, Throat: moist mucous membranes, hearing normal Cardiovascular: regular rate and rhythym, no murmur, rub, or gallop Respiratory: no respiratory distress, no rales or rhonchi, clear to auscultation Gastrointestinal: normoactive bowel sounds, soft, non-tender abdomen, No guarding, No rebound, No distension Skin: warm Neurologic: other (non focal) Psychiatric: interacting appropriately, not anxious, not encephalopathic ICD10 Worksheet Patient Problems: Problems Problem Status Onset Aneurysm of right popliteal artery Acute Knee effusion, right Acute Renal failure Acute
[2018-06-04 16:14] VITALS: BP 164/98
[2018-06-04] MEDS: RIVAROXABAN 20 MG TAB PO SCH (17:34)
== END 2018-06-04 18:28 | disposition home or self-care (01) | DRG 554 ==
LOC: INTOOBSV 19:36 → F3E 20:25 → OBSVTOIN 05-31 16:02
PROVIDERS: ADMIT Student in an Organized Health Care Education/Training Program; ATTEND Internal Medicine
PROC: 0S9C3ZX Drainage of Right Knee Joint, Percutaneous Approach, Diagnostic (ICD-10-PCS; principal; 2018-05-31)
DX: M10.061 Idiopathic gout, right knee (principal); I10 Essential (primary) hypertension; R73.9 Hyperglycemia, unspecified; G89.29 Other chronic pain; Z98.890 Other specified postprocedural states; Z79.01 Long term (current) use of anticoagulants; Z86.718 Personal history of other venous thrombosis and embolism; Z72.0 Tobacco use; Z80.9 Family history of malignant neoplasm, unspecified
CPT/HCPCS: 97116-GP; 97162-GP; G0378; J0360; J1885; J7512; Q9967